=== PATIENT | female | born 1995 | race Two or more races ===

== ENCOUNTER 2018-06-09 22:16 | Emergency (ER) | payer OTHER, MEDICAID ==
[~2018-06-09] VITALS: Ht 170.2 cm; Wt 54.4 kg
[~2018-06-09 22:16] MED LIST: AMOXICILLIN500 MG PO; BACTRIM DS TAB1 EAC1 ORAL; BENADRYL50 MG ORAL; DIPHENHYDRAMINE25 M1 ORAL; IBUPROFEN600 MG PO; KEFLEX500 MG ORAL; NKM; PREDNISONE20 MG ORAL
[2018-06-10] MEDS ORDERED: ANUSOL-HC30 GM RC (00:27)
[2018-06-10] MEDS ORDERED: COLACE100 MG ORAL (00:27)
[2018-06-10 01:03] VITALS: BP 105/62
[2018-06-10 01:08] VITALS: BP 105/62
--- NOTE | 2018-06-10 03:55 | Emergency Room Report ---
History of Present Illness General Chief Complaint: Female Urogenital Problems Source: Patient Present Illness HPI Patient presents with complaints of discomfort to the lower buttock area she feels that there is a hemorrhoid Pain is 3 out of 10 worse with sitting Denies any constipation Denies any abdominal pain Denies any fevers or chills Allergies: Coded Allergies: No Known Allergies (Unverified , 02/05/13) Patient History Past Medical History: see triage record Pertinent Family History: none Now: No Reviewed Nursing Documentation: PMH: Agreed; PSxH: Agreed Nursing Documentation-PMH Past Medical History: No Stated History Review of Systems All Other Systems: negative except mentioned in HPI Physical Exam Vital Signs Date Time Temp Pulse Resp B/P (MAP) Pulse Ox O2 Delivery O2 Flow Rate FiO2 06/09/18 23:38 98.9 70 16 105/62 99 Room Air 99.0 Sp02 EP Interpretation: reviewed, normal General Appearance: well appearing, no apparent distress Head: normocephalic, atraumatic ENT: hearing grossly normal, normal pharynx Neck: supple Respiratory: lungs clear Cardiovascular #1: regular rate, rhythm Gastrointestinal: non tender Rectal: other - Exam with Janet (female nurse) reveals small thrombosed hemorrhoid at approximately 6:00, no other fissures or masses essentially pea- sized thrombosed hemorrhoid Genitourinary: no CVA tenderness Neurologic: alert, oriented x3 Skin: normal color, no rash Lymphatic: no adenopathy Medical Decision Making Diagnostic Impression: Primary Impression: thrombosed hemorrhoids ER Course Patient exam is consistent with thrombosed hemorrhoid This area is fairly small in nature, she will have conservative attempt by emergency department Was provided with referral for specialty follow-up Last Vital Signs Date Time Temp Pulse Resp B/P (MAP) Pulse Ox O2 Delivery O2 Flow Rate FiO2 06/10/18 01:08 98.9 70 16 105/62 99 Room Air Status: unchanged Disposition: HOME, SELF-CARE Condition: Stable Scripts Docusate Sodium* (COLACE*) 100 Mg Capsule 100 MG ORAL THREE TIMES A DAY, #30 CAP Prov: Mai Meyers DO 06/10/18 Hydrocortisone Hc 2.5% Cream (ANUSOL-HC 2.5% CREAM) Y Cr 1 INCH RC TID for 7 Days, GM Prov: Mai Meyers DO 06/10/18 Referrals: NON PHYSICIAN (PCP) Balbir Helms Patient Instructions: Hemorrhoids, [id number] Additional Instructions: Patient is provided with the discharge instructions notified to follow up with primary doctor in the next 2-3 days otherwise return to the er with any worsening symptoms. Please note that this report is being documented using DRAGON technology. This can lead to erroneous entry secondary to incorrect interpretation by the dictating instrument. Mai Meyers DO Jun 10, 2018 03:55
== END 2018-06-10 01:10 | disposition home or self-care (01) ==
LOC: EMR 22:50
DX: K64.5 Perianal venous thrombosis (principal)
CPT/HCPCS: 99283

== ENCOUNTER 2019-09-20 21:53 | Emergency (ER) | payer OTHER, MEDICAID ==
[~2019-09-20] VITALS: Ht 170.2 cm; Wt 54.4 kg
[~2019-09-20 21:53] MED LIST changes: +ANUSOL-HC30 GM RC; +COLACE100 MG ORAL
[2019-09-20 22:00] VITALS: BP 110/72
--- NOTE | 2019-09-20 22:00 | NUR ---
ED Nurse Note: Pt is aa0x4, vss, no acute distress. Pt is cooperative, well groomed, with family at bedside. Pt denies any head or back trama due to falling into flight attendents arms. Pt has no skin issues noted. Patient walked into ED c/o syncopal episode that happened yesterday 09/19/19 [place] a 3hour flight. Pt states she has 0/10 pain.
--- NOTE | 2019-09-20 22:14 | NUR ---
ED Nurse Note: Blood sent to lab. at bedside.
[2019-09-20 22:30] LABS: BASOPHILS % (AUTO) 1.1 % (0.0-2.0); EOSINOPHILS % (AUTO) 1.5 % (0.0-3.0); HEMATOCRIT 39.7 % (37.0-47.0); HEMOGLOBIN 13.2 G/DL (12.0-16.0); LYMPHOCYTES % (AUTO) 35.6 % (20.0-45.0); MEAN CORPUSCULAR VOLUME 88 FL (80-99); MONOCYTES % (AUTO) 7.6 % (1.0-10.0); NEUTROPHILS % (AUTO) 54.2 % (45.0-75.0); PLATELET COUNT 228 K/UL (150-450); RED BLOOD COUNT 4.53 M/UL (4.20-5.40); RED CELL DISTRIBUTION WIDTH 11.9 % (11.6-14.8); WHITE BLOOD COUNT 9.2 K/UL (4.8-10.8)
--- NOTE | 2019-09-20 22:30 | NUR ---
ED Nurse Note: Pt ambulated to bathroom. Urine sent stuart lab.
[2019-09-20 22:39] LABS: APPEARANCE,URINE CLEAR; BILIRUBIN, URINE NEGATIVE (NEGATIVE); GLUCOSE, URINE (UA) NEGATIVE (NEGATIVE); KETONES,URINE 1+ (NEGATIVE); LEUKOCYTE ESTERASE ,URINE 1+ (NEGATIVE); NITRITE,URINE POSITIVE (NEGATIVE); PH,URINE 5 (4.5-8.0); PROTEIN,URINE 1+ (NEGATIVE); UROBILINOGEN,URINE NORMAL MG/DL (0.0-1.0)
[2019-09-20 22:42] LABS: COLOR,URINE YELLOW
[2019-09-20 22:45] LABS: ANION GAP 6 mmol/L (5-15); BLOOD UREA NITROGEN 8 mg/dL (7-18); CALCIUM 8.4 MG/DL (8.5-10.1); CARBON DIOXIDE 28 MMOL/L (21-32); CHLORIDE 107 MMOL/L (98-107); CREATININE 0.7 MG/DL (0.55-1.30); POTASSIUM 3.7 MMOL/L (3.5-5.1); SODIUM 141 MMOL/L (136-145)
[2019-09-20 22:49] LABS: ALANINE AMINOTRANSFERASE 25 U/L (12-78); ALBUMIN 3.9 G/DL (3.4-5.0); ALBUMIN/GLOBULIN RATIO 1.1 (1.0-2.7); ALKALINE PHOSPHATASE 58 U/L (46-116); ASPARTATE AMINO TRANSFERASE 18 U/L (15-37); BILIRUBIN,TOTAL 0.4 MG/DL (0.2-1.0)
[2019-09-20 23:35] VITALS: BP 112/75
--- NOTE | 2019-09-20 23:35 | NUR ---
ER DISCHARGE NOTE: Patient is cleared to be discharged per ERMD, pt is aox4, on room air, with stable vital signs. pt was given dc and prescription instructions, pt was able to verbalize understanding, pt id band and iv site removed without complications. pt is able to ambulate with steady gait. pt took all belongings. Pt left with her mother.
--- NOTE | 2019-09-20 23:35 | Emergency Room Report ---
History of Present Illness General Chief Complaint: Syncope Source: Patient Present Illness HPI 24-year-old female presents ED for evaluation. Mother at bedside. States that she passed out yesterday while on a flight. Was caught by the flight coordinator. States she feels fine now. Is here to be evaluated. History of anemia. States she has had a syncopal episode about once a year for the last several years. Has not yet had medical evaluation for this yet. Denies any dizziness or chest pain. Denies any headache. Denies any weakness. No other aggravating relieving factors. Denies any other associated symptoms Allergies: Coded Allergies: No Known Allergies (Unverified , 02/05/13) Patient History Past Medical History: none Past Surgical History: none Pertinent Family History: none Social History: Denies: smoking, alcohol use, drug use Last Menstrual Period: 09/06/19 Now: No Immunizations: UTD Reviewed Nursing Documentation: PMH: Agreed; PSxH: Agreed Nursing Documentation-PMH Past Medical History: No History, Except For Review of Systems All Other Systems: negative except mentioned in HPI Physical Exam Vital Signs Date Time Temp Pulse Resp B/P (MAP) Pulse Ox O2 Delivery O2 Flow Rate FiO2 09/20/19 21:59 98.2 82 18 105/71 (82) 98 Room Air Sp02 EP Interpretation: reviewed, normal General Appearance: no apparent distress, alert, GCS 15, non-toxic Head: normocephalic, atraumatic Eyes: bilateral eye normal inspection, bilateral eye PERRL ENT: hearing grossly normal, normal pharynx, no angioedema, normal voice Neck: full range of motion, supple/symm/no masses Respiratory: chest non-tender, lungs clear, normal breath sounds, speaking full sentences Cardiovascular #1: regular rate, rhythm, no edema Cardiovascular #2: 2+ carotid (R), 2+ carotid (L), 2+ radial (R), 2+ radial (L) , 2+ dorsalis pedis (R), 2+ dorsalis pedis (L) Gastrointestinal: normal bowel sounds, non tender, soft, non-distended, no guarding, no rebound Rectal: deferred Genitourinary: normal inspection, no CVA tenderness Musculoskeletal: back normal, normal range of motion, gait/station normal, non- tender Neurologic: alert, motor strength/tone normal, oriented x3, sensory intact, responsive, speech normal Psychiatric: judgement/insight normal, memory normal, mood/affect normal, no suicidal/homicidal ideation Reflexes: 3+ bicep (R), 3+ bicep (L), 3+ tricep (R), 3+ tricep (L), 3+ knee (R) , 3+ knee (L) Skin: no rash Lymphatic: no adenopathy Medical Decision Making Diagnostic Impression: Primary Impression: Syncope Qualified Codes: R55 - Syncope and collapse ER Course Hospital Course 24-year-old female presents ED s/p syncopal episode. no complaints now Differential diagnoses include: arrythmia, dehydration, intracranial bleed, seizure Clinical course Patient placed on stretcher. on active directory specialist. After initial history and physical I ordered labs, EKG, IVFs labs reviewed- no leukocytosis, Hb/Hct stable, electrolytes ok, troponins negative, UA negative, UDS negative EKG - NSR no acute ischemic changes interpreted by me I discussed findings with patient and mother. Per syncope rules patient can be discharged to home. safe for discharge with close outpatient followup. states she has a PMD I. I feel this is a highly complex case requiring extensive working including EKG/Rhythm strip, Xray/CT/US, Blood/urine lab work, repeat exams while in ED, and administration of strong opiates/narcotics for pain control, admission to hospital or close patient follow up. Diagnosis - syncope Stable and discharged to home. Followup with PMD. Return to ED if symptoms recur or worsen Labs Test 09/20/19 22:10 09/20/19 22:27 White Blood Count 9.2 K/UL (4.8-10.8) Red Blood Count 4.53 M/UL (4.20-5.40) Hemoglobin 13.2 G/DL (12.0-16.0) Hematocrit 39.7 % (37.0-47.0) Mean Corpuscular Volume 88 FL (80-99) Mean Corpuscular Hemoglobin 29.2 PG (27.0-31.0) Mean Corpuscular Hemoglobin Concent 33.3 G/DL (32.0-36.0) Red Cell Distribution Width 11.9 % (11.6-14.8) Platelet Count 228 K/UL (150-450) Mean Platelet Volume 7.4 FL (6.5-10.1) Neutrophils (%) (Auto) 54.2 % (45.0-75.0) Lymphocytes (%) (Auto) 35.6 % (20.0-45.0) Monocytes (%) (Auto) 7.6 % (1.0-10.0) Eosinophils (%) (Auto) 1.5 % (0.0-3.0) Basophils (%) (Auto) 1.1 % (0.0-2.0) Sodium Level 141 MMOL/L (136-145) Potassium Level 3.7 MMOL/L (3.5-5.1) Chloride Level 107 MMOL/L (98-107) Carbon Dioxide Level 28 MMOL/L (21-32) Anion Gap 6 mmol/L (5-15) Blood Urea Nitrogen 8 mg/dL (7-18) Creatinine 0.7 MG/DL (0.55-1.30) Estimat Glomerular Filtration Rate > 60 mL/min (>60) Glucose Level 103 MG/DL (74-106) Calcium Level 8.4 MG/DL (8.5-10.1) Total Bilirubin 0.4 MG/DL (0.2-1.0) Aspartate Amino Transf (AST/SGOT) 18 U/L (15-37) Alanine Aminotransferase (ALT/SGPT) 25 U/L (12-78) Alkaline Phosphatase 58 U/L (46-116) Total Protein 7.3 G/DL (6.4-8.2) Albumin 3.9 G/DL (3.4-5.0) Globulin 3.4 g/dL Albumin/Globulin Ratio 1.1 (1.0-2.7) Urine Color Yellow Urine Appearance Clear Urine pH 5 (4.5-8.0) Urine Specific [place] 1.030 (1.005-1.035) Urine Protein 1+ (NEGATIVE) Urine Glucose (UA) Negative (NEGATIVE) Urine Ketones 1+ (NEGATIVE) Urine Blood 4+ (NEGATIVE) Urine Nitrite Positive (NEGATIVE) Urine Bilirubin Negative (NEGATIVE) Urine Urobilinogen Normal MG/DL (0.0-1.0) Urine Leukocyte Esterase 1+ (NEGATIVE) Urine RBC 2-4 /HPF (0 - 2) Urine WBC 0-2 /HPF (0 - 2) Urine Squamous Epithelial Cells Few /LPF (NONE/OCC) Urine Bacteria Few /HPF (NONE) Urine HCG, Qualitative Negative (NEGATIVE) Urine Opiates Screen Negative (NEGATIVE) Urine Barbiturates Screen Negative (NEGATIVE) Phencyclidine (PCP) Screen Negative (NEGATIVE) Urine Amphetamines Screen Negative (NEGATIVE) Urine Benzodiazepines Screen Negative (NEGATIVE) Urine Cocaine Screen Negative (NEGATIVE) Urine Marijuana (THC) Screen Negative (NEGATIVE) EKG Diagnostic Results Rate: normal Rhythm: NSR ST Segments: no acute changes ASA given to the pt in ED: No Rhythm Strip Diag. Results EP Interpretation: yes Rhythm: NSR, no PVC's, no ectopy Last Vital Signs Date Time Temp Pulse Resp B/P (MAP) Pulse Ox O2 Delivery O2 Flow Rate FiO2 09/20/19 22:00 98.8 78 18 110/72 98 Room Air Status: improved Disposition: HOME, SELF-CARE Condition: Stable Referrals: NON PHYSICIAN (PCP) Patient Instructions: Syncope Jordan Snell MD Sep 20, 2019 23:35
--- NOTE | 2019-09-21 14:58 | Cardiology Report ---
APPROVED REPORT EKG Measurement Heart [id number] Normal sinus rhythm Nonspecific T wave abnormality Abnormal ECG
== END 2019-09-20 23:35 | disposition home or self-care (01) ==
LOC: EMR 22:14
DX: R55 Syncope and collapse (principal)
CPT/HCPCS: 36415; 80053; 80307; 81003; 81025; 85025; 93005; 96360; 99284

== ENCOUNTER 2019-10-06 06:01 | Emergency (ER) | payer OTHER ==
[~2019-10-06] VITALS: Ht 170.2 cm; Wt 54.4 kg
[2019-10-06 06:11] VITALS: BP 99/60
--- NOTE | 2019-10-06 06:18 | NUR ---
ED Nurse Note: pt walked in c/o flu like symptoms- sorethroat, cough, headache, pt also states nausea with vomiting, sharp pain on left shoulder to stomach since yesterday. Family at bedside. NAD, ANABELLE, THOMAS at bedside. Will continue to monitor patient.
--- NOTE | 2019-10-06 06:35 | NUR ---
ED Nurse Note: IV line established on left AC with 20g saline lock. Blood drawn and sent to lab. Line patent and intact.
[2019-10-06] MEDS ORDERED: Ketorolac 30mg Inj IV ONE (06:45)
[2019-10-06 06:48] LABS: APPEARANCE,URINE CLEAR; BILIRUBIN, URINE NEGATIVE (NEGATIVE); COLOR,URINE PALE YELLOW; GLUCOSE, URINE (UA) NEGATIVE (NEGATIVE); KETONES,URINE NEGATIVE (NEGATIVE); LEUKOCYTE ESTERASE ,URINE 1+ (NEGATIVE); NITRITE,URINE NEGATIVE (NEGATIVE); PH,URINE 6.5 (4.5-8.0); PROTEIN,URINE 1+ (NEGATIVE); UROBILINOGEN,URINE 1 MG/DL (0.0-1.0)
[2019-10-06 06:59] LABS: ANION GAP 8 mmol/L (5-15); BLOOD UREA NITROGEN 9 mg/dL (7-18); CALCIUM 8.1 MG/DL (8.5-10.1); CARBON DIOXIDE 23 MMOL/L (21-32); CHLORIDE 107 MMOL/L (98-107); CREATININE 0.9 MG/DL (0.55-1.30); POTASSIUM 3.7 MMOL/L (3.5-5.1); SODIUM 138 MMOL/L (136-145)
[2019-10-06 07:04] LABS: ALANINE AMINOTRANSFERASE 19 U/L (12-78); ALBUMIN 3.6 G/DL (3.4-5.0); ALKALINE PHOSPHATASE 53 U/L (46-116); ASPARTATE AMINO TRANSFERASE 12 U/L (15-37); BILIRUBIN,TOTAL 0.2 MG/DL (0.2-1.0)
[2019-10-06 07:09] LABS: BASOPHILS % (AUTO) 1.7 % (0.0-2.0); EOSINOPHILS % (AUTO) 0.4 % (0.0-3.0); HEMATOCRIT 34.6 % (37.0-47.0); HEMOGLOBIN 11.5 G/DL (12.0-16.0); LYMPHOCYTES % (AUTO) 14.2 % (20.0-45.0); MEAN CORPUSCULAR VOLUME 86 FL (80-99); MONOCYTES % (AUTO) 12.3 % (1.0-10.0); NEUTROPHILS % (AUTO) 71.5 % (45.0-75.0); PLATELET COUNT 188 K/UL (150-450); WHITE BLOOD COUNT 5.7 K/UL (4.8-10.8)
--- NOTE | 2019-10-06 07:12 | NUR ---
HAND-OFF: Report given to Lianne CASTRO.
[2019-10-06 07:13] VITALS: BP 100/61
--- NOTE | 2019-10-06 07:13 | NUR ---
ED Nurse Note: Received report from Derik Rebolledo RN.
[2019-10-06 09:22] VITALS: BP 110/69
--- NOTE | 2019-10-06 09:35 | NUR ---
ED Nurse Note: ERMD at bedside. Pt alert and oriented. Not in any distress. Mother at bedside.
--- NOTE | 2019-10-06 09:58 | NUR ---
ED Nurse Note: Pt was taken for CT.
--- NOTE | 2019-10-06 10:19 | Diagnostic Imaging Report ---
Indication: Headache Technique: Continuous helical CT scanning of the head was performed without intravenous contrast material. Axial and coronal 5 mm sections were generated. Radiation dose was minimized using automated exposure control Dose: Total Dose Length Product - DLP 1214.[address] Dose Index - CTDIvol(s) 60 mGy. Comparison: None FINDINGS: There is no acute intracranial hemorrhage, mass effect or cortical edema. There is no shift of the midline structures. [place]-white differentiation appears preserved. The ventricles, cisterns and sulci are normal for age. Visualized mastoid air cells and paranasal sinuses are unremarkable. No focal lesions of the bony calvarium or soft tissues of the scalp are seen. IMPRESSION: No evidence of acute intracranial hemorrhage, mass effect or cortical edema. MRI may be obtained for more sensitive evaluation as clinically indicated. The CT scanner at [facility] is accredited by the [employer] and the scans are performed using protocols designed to limit radiation exposure to as low as reasonably achievable to attain images of sufficient resolution adequate for diagnostic evaluation.
--- NOTE | 2019-10-06 10:24 | NUR ---
ED Nurse Note: Pt came back from CT.
--- NOTE | 2019-10-06 12:00 | NUR ---
ED Nurse Note: ERMD at bedside for lumbar puncture.
--- NOTE | 2019-10-06 12:17 | Emergency Room Report ---
History of Present Illness General Chief Complaint: Flu Like Symptoms Source: Patient Present Illness HPI This patient states that over the past day she has felt "terrible." She states she has had a headache with light sensitivity. She states she has all over body aches, sore throat, congestion and fatigue. She states that her headache and light sensitivity is her main discomfort. She does not have a history of headaches and never has had a headache like this in the past. She denies cough , chest pain or shortness of breath. She states that this morning she did have an episode of nausea and vomiting. She states that she also has pain when she moves her eyes around. She denies recent travel. She denies diarrhea. She has had occasional stomach cramping. She has no other complaints. Allergies: Coded Allergies: No Known Allergies (Unverified , 02/05/13) Patient History Past Medical History: none, other - In w/u for a mass on kidney and other possible genetic disorders. No specific dx. Social History: Denies: smoking, alcohol use, drug use Now: No Reviewed Nursing Documentation: PMH: Agreed; PSxH: Agreed Nursing Documentation-PMH Past Medical History: No Stated History Review of Systems All Other Systems: negative except mentioned in HPI Physical Exam Vital Signs Date Time Temp Pulse Resp B/P (MAP) Pulse Ox O2 Delivery O2 Flow Rate FiO2 10/06/19 06:05 99.3 108 18 99/60 (73) 96 Room Air Sp02 EP Interpretation: reviewed, normal General Appearance: no apparent distress, alert, GCS 15, non-toxic Head: normocephalic, atraumatic Eyes: bilateral eye normal inspection, bilateral eye PERRL, bilateral eye other - Light sensitivity ENT: hearing grossly normal, normal pharynx, no angioedema, normal voice Neck: normal inspection, full range of motion, supple/symm/no masses Respiratory: chest non-tender, lungs clear, normal breath sounds, no respiratory distress, no retraction, no accessory muscle use, speaking full sentences Cardiovascular #1: no edema, tachycardia Gastrointestinal: normal bowel sounds, non tender, soft, non-distended, no guarding, no rebound Rectal: deferred Musculoskeletal: back normal, normal range of motion, calf tenderness, gait/ station normal, non-tender Neurologic: alert, motor strength/tone normal, oriented x3, sensory intact, responsive, speech normal Psychiatric: judgement/insight normal, memory normal, mood/affect normal, no suicidal/homicidal ideation Skin: no rash, normal color Procedures Lumbar Puncture Consent: Written Location: L3-L4 Anesthesia: 1% Lidocaine Volume Anesthetic (ccs): 2 Prep: bedadine Needle Size: 1 1/2 CSF: clear Post-Procedure: recumbent position Attempts: One Complications: none Patient Tolerated: Well Medical Decision Making Diagnostic Impression: Primary Impression: Viral syndrome Additional Impression: Headache ER Course This patient has a clinical presentation consistent with viral syndrome. The patient had headache, photophobia and pain with extraocular movements. Although I a low suspicion for meningitis, after discussion about a lumbar puncture and my low suspicion although the patient did have some meningeal symptoms with the patient and her mother who is bedside, the patient decided that she would like to undergo the lumbar puncture to rule out any possibility of meningitis. I did perform a lumbar puncture without complication or incident. See my procedure note. The results of the lumbar puncture were negative. There are no red flags on physical exam that would make me concerned for serious illness. This includes no evidence of meningitis, intra-abdominal process that would make me concerned for appendicitis or diverticulitis or other surgical or emergency etiology. Overall, this patient's presentation is benign and the patient is nontoxic. Laboratory workup is negative. There is no evidence of an emergency medical condition. The patient is given close return precautions and followup instructions. Laboratory Tests Test 10/06/19 06:10 10/06/19 06:35 Urine Color Pale yellow Urine Appearance Clear Urine pH 6.5 (4.5-8.0) Urine Specific [place] 1.020 (1.005-1.035) Urine Protein 1+ (NEGATIVE) H Urine Glucose (UA) Negative (NEGATIVE) Urine Ketones Negative (NEGATIVE) Urine Blood 4+ (NEGATIVE) H Urine Nitrite Negative (NEGATIVE) Urine Bilirubin Negative (NEGATIVE) Urine Urobilinogen 1 MG/DL (0.0-1.0) H Urine Leukocyte Esterase 1+ (NEGATIVE) H Urine RBC 5-10 /HPF (0 - 2) H Urine WBC 0-2 /HPF (0 - 2) Urine Squamous Epithelial Cells Few /LPF (NONE/OCC) Urine Bacteria Few /HPF (NONE) Urine HCG, Qualitative Negative (NEGATIVE) White Blood Count 5.7 K/UL (4.8-10.8) Red Blood Count 4.00 M/UL (4.20-5.40) L Hemoglobin 11.5 G/DL (12.0-16.0) L Hematocrit 34.6 % (37.0-47.0) L Mean Corpuscular Volume 86 FL (80-99) Mean Corpuscular Hemoglobin 28.7 PG (27.0-31.0) Mean Corpuscular Hemoglobin Concent 33.2 G/DL (32.0-36.0) Red Cell Distribution Width 12.0 % (11.6-14.8) Platelet Count 188 K/UL (150-450) Mean Platelet Volume 7.2 FL (6.5-10.1) Neutrophils (%) (Auto) 71.5 % (45.0-75.0) Lymphocytes (%) (Auto) 14.2 % (20.0-45.0) L Monocytes (%) (Auto) 12.3 % (1.0-10.0) H Eosinophils (%) (Auto) 0.4 % (0.0-3.0) Basophils (%) (Auto) 1.7 % (0.0-2.0) Sodium Level 138 MMOL/L (136-145) Potassium Level 3.7 MMOL/L (3.5-5.1) Chloride Level 107 MMOL/L (98-107) Carbon Dioxide Level 23 MMOL/L (21-32) Anion Gap 8 mmol/L (5-15) Blood Urea Nitrogen 9 mg/dL (7-18) Creatinine 0.9 MG/DL (0.55-1.30) Estimate Glomerular Filtration Rate > 60 mL/min (>60) Glucose Level 95 MG/DL (74-106) Calcium Level 8.1 MG/DL (8.5-10.1) L Total Bilirubin 0.2 MG/DL (0.2-1.0) Aspartate Amino Transferase (AST) 12 U/L (15-37) L Alanine Aminotransferase (ALT) 19 U/L (12-78) Alkaline Phosphatase 53 U/L (46-116) Total Protein 7.2 G/DL (6.4-8.2) Albumin 3.6 G/DL (3.4-5.0) Globulin 3.6 g/dL Albumin/Globulin Ratio 1.0 (1.0-2.7) Microbiology Date/Time Source Procedure Growth Status 10/06/19 06:49 Nasal Nares - Final Complete 10/06/19 06:49 Nasal Nares - Final Complete CT/MRI/US Diagnostic Results CT/MRI/US Diagnostic Results : Imaging Test Ordered: CT head Impression No acute findings. Specifically no intracranial bleed, mass effect or edema. See official report. Last Vital Signs Date Time Temp Pulse Resp B/P (MAP) Pulse Ox O2 Delivery O2 Flow Rate FiO2 10/06/19 09:22 98.7 72 16 110/69 98 Room Air Status: improved Disposition: HOME, SELF-CARE Condition: Improved Scripts Ibuprofen* (MOTRIN*) 800 Mg Tablet 800 MG ORAL THREE TIMES A DAY, #30 TAB 0 Refills Prov: Elissa Cherry DO 10/06/19 Ondansetron Odt* (ZOFRAN ODT*) 8 Mg Tab.rapdis 8 MG ORAL Q6H PRN for Nausea & Vomiting, #10 TAB Prov: Elissa Cherry DO 10/06/19 Acetaminophen With Codeine (T#3) (TYLENOL #3 TAB*) Y Tab 1 TAB ORAL Q8H PRN for For Pain, #20 TAB Prov: Elissa Cherry DO 10/06/19 Referrals: [facility],REFERRING (PCP) Elissa Cherry DO Oct 06, 2019 12:17
[2019-10-06] MEDS ORDERED: IBUPROFEN800 MG ORAL (12:22)
[2019-10-06] MEDS ORDERED: ACETAMINOPHEN-1 EAC1 ORAL (12:22)
[2019-10-06] MEDS ORDERED: ZOFRAN ODT8 MG ORAL (12:22)
[2019-10-06 12:24] VITALS: BP 112/71
[2019-10-06 12:31] VITALS: BP 112/71
--- NOTE | 2019-10-06 12:31 | NUR ---
ED Nurse Note: Pt cleared by ERMD for discharge. DC instructions/prescription was given and explained to pt and verbalized understanding of teachings. All medical deviecs such as ID band and IV line removed. Pt is AAO x4, ambulatory and left with all personal belongings. Accompanied by mother.
== END 2019-10-06 12:31 | disposition home or self-care (01) ==
LOC: EMR 06:31
DX: B34.9 Viral infection, unspecified (principal); R51 Headache
CPT/HCPCS: 36415; 62270; 70450; 80053; 81003; 81025; 82945; 84157; 85025; 86710; 87070; 87205; 89051; 96361; 96374; 99284; J1885; J7030